=== PATIENT | female | born 1970 | race Caucasian/White ===

== ENCOUNTER 2016-10-24 04:10 | Emergency (ER) | payer BC, OTHER ==
--- NOTE | 2016-10-24 04:56 | EDM.PDOC ---
ED HPI Trauma - General Chief Complaint: Lower Extremity Injury/Pain Stated Complaint: LEFT KNEE PAIN Time Seen by Provider: 10/24/16 04:51 - History of Present Illness INITIAL COMMENTS - FREE TEXT/NARRATIVE: HISTORY AND PHYSICAL: History of present illness: Patient 46-year-old white female judgments were left knee pain she states she had this for approximately one month she denies trauma denies history of gout denies fever chills or other concern Review of systems: As per history of present illness and below otherwise all systems reviewed and negative. Past medical history: As per history of present illness and as reviewed below otherwise noncontributory. Surgical history: As per history of present illness and as reviewed below otherwise noncontributory. Social history: No reported history of drug or alcohol abuse. Family history: As per history of present illness and as reviewed below otherwise noncontributory. Physical exam: HEENT: Atraumatic, normocephalic, pupils reactive, negative for conjunctival pallor or scleral icterus, mucous membranes moist, throat clear, neck supple, nontender, trachea midline. Lungs: Clear to auscultation, breath sounds equal bilaterally, chest nontender. Heart: S1S2, regular, negative for clicks, rubs, or JVD. Abdomen: Soft, nondistended, nontender. Negative for masses or hepatosplenomegaly. Negative for costovertebral tenderness. Pelvis: Stable nontender. Genitourinary: Deferred. Rectal: Deferred. Extremities: Atraumatic, negative for cords or calf pain. Neurovascular unremarkable. Left knee No point tenderness crepitation joint grossly stable Neuro: Awake, alert, oriented. Cranial nerves II through XII unremarkable. Cerebellum unremarkable. Motor and sensory unremarkable throughout. Exam nonfocal. Diagnostics: X-ray left knee CBC uric acid Therapeutics: Paco wrap crutches Impression: #1 chronic left knee pain Definitive disposition and diagnosis as appropriate pending reevaluation and review of above. Allergies/ADRs: Allergies morphine Allergy (Verified 10/24/16 04:14) Itching Home Medications: Ambulatory Orders . [No Known Home Meds] 10/24/16 [Confirmed 10/24/16] Past Medical History HEENT History: Reports: Other (see below) Other HEENT History: frequent headaches Cardiovascular History: Reports: None Respiratory History: Reports: None Gastrointestinal History: Reports: None Genitourinary History: Reports: None Other OB/BYN History: mass removed form RLQ of abd Neurological History: Reports: Headaches, chronic Psychiatric History: Reports: None Endocrine/Metabolic History: Reports: None Hematologic History: Reports: None Immunologic History: Reports: None Oncologic (Cancer) History: Reports: None Dermatologic History: Reports: None - Infectious Disease History Infectious Disease History: Reports: None - Past Surgical History Head Surgeries/Procedures: Reports: None HEENT Surgical History: Reports: None Cardiovascular Surgical History: Reports: None Female Surgical History: Reports: Tubal ligation Endocrine Surgical History: Reports: None Musculoskeletal Surgical History: Reports: Other (see below) Other Musculoskeletal Surgeries/Procedures:: right knee 4 or 5 years ago Social & Family History - Tobacco Use Smoking Status *Q: Never Smoker Second Hand Smoke Exposure: No - Caffeine Use Caffeine Use: Reports: Soda - Alcohol Use Days Per Week of Alcohol Use: 0 - Recreational Drug Use Recreational Drug Use: No Review of Systems - Review of Systems Review Of Systems: ROS reveals no pertinent complaints other than HPI. Trauma Exam - Physical Exam Exam: See Below (See dictation) Course - Vital Signs Last Recorded V/S: Last Vital Signs Temp 36.8 C 10/24/16 04:15 Pulse 85 10/24/16 04:15 Resp 17 10/24/16 04:15 BP 137/87 10/24/16 04:15 Pulse Ox 98 10/24/16 04:15 - Orders/Labs/Meds Orders: Active Orders 24 hr Category Date Time Status Knee 3V Lt [CR] Stat Exams 10/24/16 04:21 Ordered URIC ACID [CHEM] Stat Lab 10/24/16 04:32 Received Labs: Laboratory Tests 10/24/16 Range/Units 04:32 WBC 5.09 (4.0-11.0) K/uL RBC 4.88 (4.30-5.90) M/uL Hgb 10.8 L (12.0-16.0) g/dL Hct 36.4 (36.0-46.0) % MCV 74.6 L (80.0-98.0) fL MCH 22.1 L (27.0-32.0) pg MCHC 29.7 L (31.0-37.0) g/dL RDW Std Deviation 45.8 (28.0-62.0) fl RDW Coeff of Junaid 17 H (11.0-15.0) % Plt Count 391 (150-400) K/uL MPV 9.00 (7.40-12.00) fL Neut % (Auto) 61.4 (48.0-80.0) % Lymph % (Auto) 28.3 (16.0-40.0) % [place] % (Auto) 7.3 (0.0-15.0) % Eos % (Auto) 2.6 (0.0-7.0) % Baso % (Auto) 0.4 (0.0-1.5) % Neut # (Auto) 3.1 (1.4-5.7) K/uL Lymph # (Auto) 1.4 (0.6-2.4) K/uL [place] # (Auto) 0.4 (0.0-0.8) K/uL Eos # (Auto) 0.1 (0.0-0.7) K/uL Baso # (Auto) 0.0 (0.0-0.1) K/uL Nucleated RBC % 0.0 /100WBC Nucleated RBCs # 0 K/uL Departure - Departure Time of Disposition: 04:54 Disposition: Home, Self-Care 01 Condition: good Clinical Impression: Knee pain, chronic Forms: ED Department Discharge Additional Instructions: The following information is given to patients seen in the emergency department who are being discharged to home. This information is to outline your options for follow-up care. We provide all patients seen in our emergency department with a follow-up referral. The need for follow-up, as well as the timing and circumstances, are variable depending upon the specifics of your emergency department visit. If you don't have a primary care physician on staff, we will provide you with a referral. We always advise you to contact your personal physician following an emergency department visit to inform them of the circumstance of the visit and for follow-up with them and/or the need for any referrals to a consulting specialist. The emergency department will also refer you to a specialist when appropriate. This referral assures that you have the opportunity for followup care with a specialist. All of these measure are taken in an effort to provide you with optimal care, which includes your followup. Under all circumstances we always encourage you to contact your private physician who remains a resource for coordinating your care. When calling for followup care, please make the office aware that this follow-up is from your recent emergency room visit. If for any reason you are refused follow-up, please contact the [facility] emergency department at and asked to speak to the emergency department charge nurse. [facility] [address], [address] [place] [address] Motrin Tylenol as directed Paco wrap crutches as directed call the schedule routine appointment with orthopedic surgery both return as needed as discussed - My Orders Last 24 Hours: My Active Orders 10/24/16 04:21 Knee 3V Lt [CR] Stat 10/24/16 04:32 URIC ACID [CHEM] Stat - Assessment/Plan Last 24 Hours: My Active Orders 10/24/16 04:21 Knee 3V Lt [CR] Stat 10/24/16 04:32 URIC ACID [CHEM] Stat
[2016-10-24 05:36] VITALS: BP 129/85
--- NOTE | 2016-10-24 11:45 | CR ---
EXAM DATE: 10/24/16 PATIENT'S AGE: 46 Patient: ROSAURA GONZALEZ Facility: [place], [place] Site . Site : 1970 Study: XRay Knee Left [id number]/4/2017 4:53:41 AM Ordering Physician: Doctor Mann Final Report: Indication: Pain, recent injury Technique: Three views left knee Comparison: None Findings: Bones: Alignment is normal. No fractures. There is a small intra-articular body projecting over the mid knee joint on the frontal view. Joint spaces: Unremarkable. Soft tissues: Unremarkable. Impression: No acute abnormality. Small intra-articular body projecting over the mid knee joint on the frontal view. Dictated by Karena Cagle MD @ Oct 24 2016 4:58AM (Electronic Signature) Report Signed by Proxy and Original Signed Document filed in the Medical Record. [facility]ITAL[facility]ojas
== END 2016-10-24 05:31 | disposition home or self-care (01) ==
LOC: MW.ED 04:10
DX: M25.562 Pain in left knee (principal); G89.29 Other chronic pain; Z88.5 Allergy status to narcotic agent; Z98.51 Tubal ligation status; Z98.890 Other specified postprocedural states
CPT/HCPCS: 36415; 73562-26-LT; 73562-LT; 84550; 85025; 99282; 99284

== ENCOUNTER 2017-03-29 22:53 | Emergency (ER) | payer OTHER ==
--- NOTE | 2017-03-29 23:10 | EDM.PDOC ---
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 She presents with paresthesia of her tongue upper extremities bilaterally inferior extremities she denies chest pain she states is paresthesias intermittent there' s no associated weakness been no incontinence or retention bowel or bladder no back pain no chest pain no palpitations she denies drug or alcohol abuse Review of systems: As per history of present illness and below otherwise all systems reviewed and negative. Past medical history: As per history of present illness and as reviewed below otherwise noncontributory. Surgical history: As per history of present illness and as reviewed below otherwise noncontributory. Social history: No reported history of drug or alcohol abuse. Family history: As per history of present illness and as reviewed below otherwise noncontributory. Physical exam: HEENT: Atraumatic, normocephalic, pupils reactive, negative for conjunctival pallor or scleral icterus, mucous membranes moist, throat clear, neck supple, nontender, trachea midline. Lungs: Clear to auscultation, breath sounds equal bilaterally, chest nontender. Heart: S1S2, regular, negative for clicks, rubs, or JVD. Abdomen: Soft, nondistended, nontender. Negative for masses or hepatosplenomegaly. Negative for costovertebral tenderness. Pelvis: Stable nontender. Genitourinary: Deferred. Rectal: Deferred. Extremities: Atraumatic, negative for cords or calf pain. Neurovascular unremarkable. Neuro: Awake, alert, oriented. Cranial nerves II through XII unremarkable. Cerebellum unremarkable. Motor and sensory unremarkable throughout. Exam nonfocal. Diagnostics: CBC CMP PT/INR troponin chest x-ray EKG CT brain Therapeutics: None Impression: #1 paresthesia #2 history of pain syndrome Definitive disposition and diagnosis as appropriate pending reevaluation and review of above. - Related Data Allergies Allergy/AdvReac Type Severity Reaction Status Date / Time morphine Allergy Itching Verified 03/29/17 23:08 Home Meds: Home Meds Gabapentin [Neurontin] 600 mg PO TID 03/29/17 [History] Past Medical History HEENT History: Reports: Other (See Below) Other HEENT History: frequent headaches Cardiovascular History: Reports: None Respiratory History: Reports: None Gastrointestinal History: Reports: None Genitourinary History: Reports: None Other OB/BYN History: mass removed form RLQ of abd Neurological History: Reports: Headaches, Chronic Psychiatric History: Reports: None Endocrine/Metabolic History: Reports: None Hematologic History: Reports: None Immunologic History: Reports: None Oncologic (Cancer) History: Reports: None Dermatologic History: Reports: None - Infectious Disease History Infectious Disease History: Reports: None - Past Surgical History Female Surgical History: Reports: Tubal Ligation Musculoskeletal Surgical History: Reports: Other (See Below) Social & Family History - Tobacco Use Smoking Status *Q: Never Smoker Second Hand Smoke Exposure: No - Caffeine Use Caffeine Use: Reports: Soda - Alcohol Use Days Per Week of Alcohol Use: 0 - Recreational Drug Use Recreational Drug Use: No ED ROS GENERAL - Review of Systems Review Of Systems: ROS reveals no pertinent complaints other than HPI. ED EXAM, GENERAL - Physical Exam Exam: See Below (See dictation) Course - Vital Signs Last Recorded V/S: Last Vital Signs Temp 36.6 C 03/29/17 22:53 Pulse 96 03/29/17 22:53 Resp 18 03/29/17 22:53 BP 154/104 H 03/29/17 22:53 Pulse Ox 99 03/29/17 22:53 - Orders/Labs/Meds Orders: Active Orders 24 hr Category Date Time Status EKG Documentation Completion [RC] STAT Care 03/29/17 23:10 Active Head wo Cont [CT] Stat Exams 03/29/17 23:11 Taken Labs: Laboratory Tests 03/29/17 03/29/17 03/29/17 Range/Units 23:18 23:18 23:18 WBC 5.47 (4.0-11.0) K/uL RBC 4.78 (4.30-5.90) M/uL Hgb 12.6 (12.0-16.0) g/dL Hct 40.0 (36.0-46.0) % MCV 83.7 (80.0-98.0) fL MCH 26.4 L (27.0-32.0) pg MCHC 31.5 (31.0-37.0) g/dL RDW Std Deviation 63.0 H (28.0-62.0) fl RDW Coeff of Junaid 21 H (11.0-15.0) % Plt Count 384 (150-400) K/uL MPV 9.00 (7.40-12.00) fL Neut % (Auto) 66.0 (48.0-80.0) % Lymph % (Auto) 23.2 (16.0-40.0) % [place] % (Auto) 8.0 (0.0-15.0) % Eos % (Auto) 2.4 (0.0-7.0) % Baso % (Auto) 0.4 (0.0-1.5) % Neut # (Auto) 3.6 (1.4-5.7) K/uL Lymph # (Auto) 1.3 (0.6-2.4) K/uL [place] # (Auto) 0.4 (0.0-0.8) K/uL Eos # (Auto) 0.1 (0.0-0.7) K/uL Baso # (Auto) 0.0 (0.0-0.1) K/uL Nucleated RBC % 0.0 /100WBC Nucleated RBCs # 0 K/uL INR (0.86-1.11) Sodium 139 (136-146) mmol/L Potassium 3.9 (3.5-5.1) mmol/L Chloride 106 (98-110) mmol/L Carbon Dioxide 24 (21-31) mmol/L BUN 12 (6.0-23.0) mg/dL Creatinine 0.8 (0.6-1.5) mg/dL Est Cr Clr Drug Dosing 91.83 mL/min Estimated GFR (MDRD) > 60.0 ml/min Glucose 84 (60-110) mg/dL Calcium 10.0 (8.8-10.8) mg/dL Total Bilirubin 0.3 (0.1-1.5) mg/dL AST 14 (5-40) IU/L ALT 12 (8-54) IU/L Alkaline Phosphatase 69 (40-150) Troponin I < 0.10 (0.0-0.29) NG/ML Total Protein 8.0 (6.0-8.0) g/dL Albumin 4.1 (3.5-5.0) g/dL Globulin 3.9 H (2.0-3.5) g/dL Albumin/Globulin Ratio 1.1 L (1.3-2.8) 03/29/17 Range/Units 23:18 WBC (4.0-11.0) K/uL RBC (4.30-5.90) M/uL Hgb (12.0-16.0) g/dL Hct (36.0-46.0) % MCV (80.0-98.0) fL MCH (27.0-32.0) pg MCHC (31.0-37.0) g/dL RDW Std Deviation (28.0-62.0) fl RDW Coeff of Junaid (11.0-15.0) % Plt Count (150-400) K/uL MPV (7.40-12.00) fL Neut % (Auto) (48.0-80.0) % Lymph % (Auto) (16.0-40.0) % [place] % (Auto) (0.0-15.0) % Eos % (Auto) (0.0-7.0) % Baso % (Auto) (0.0-1.5) % Neut # (Auto) (1.4-5.7) K/uL Lymph # (Auto) (0.6-2.4) K/uL [place] # (Auto) (0.0-0.8) K/uL Eos # (Auto) (0.0-0.7) K/uL Baso # (Auto) (0.0-0.1) K/uL Nucleated RBC % /100WBC Nucleated RBCs # K/uL INR 1.05 (0.86-1.11) Sodium (136-146) mmol/L Potassium (3.5-5.1) mmol/L Chloride (98-110) mmol/L Carbon Dioxide (21-31) mmol/L BUN (6.0-23.0) mg/dL Creatinine (0.6-1.5) mg/dL Est Cr Clr Drug Dosing mL/min Estimated GFR (MDRD) ml/min Glucose (60-110) mg/dL Calcium (8.8-10.8) mg/dL Total Bilirubin (0.1-1.5) mg/dL AST (5-40) IU/L ALT (8-54) IU/L Alkaline Phosphatase (40-150) Troponin I (0.0-0.29) NG/ML Total Protein (6.0-8.0) g/dL Albumin (3.5-5.0) g/dL Globulin (2.0-3.5) g/dL Albumin/Globulin Ratio (1.3-2.8) Departure - Departure Time of Disposition: 00:11 Disposition: Home, Self-Care 01 Condition: Good Clinical Impression: Paresthesia - Discharge Information Referrals: PCP,None [Primary Care Provider] - Additional Instructions: The following information is given to patients seen in the emergency department who are being discharged to home. This information is to outline your options for follow-up care. We provide all patients seen in our emergency department with a follow-up referral. The need for follow-up, as well as the timing and circumstances, are variable depending upon the specifics of your emergency department visit. If you don't have a primary care physician on staff, we will provide you with a referral. We always advise you to contact your personal physician following an emergency department visit to inform them of the circumstance of the visit and for follow-up with them and/or the need for any referrals to a consulting specialist. The emergency department will also refer you to a specialist when appropriate. This referral assures that you have the opportunity for followup care with a specialist. All of these measure are taken in an effort to provide you with optimal care, which includes your followup. Under all circumstances we always encourage you to contact your private physician who remains a resource for coordinating your care. When calling for followup care, please make the office aware that this follow-up is from your recent emergency room visit. If for any reason you are refused follow-up, please contact the [facility] emergency department at and asked to speak to the emergency department charge nurse. [facility] Specialty Care - Urology [address] [place] [id number] Follow-up primary medical doctor 1-2 days return as needed as discussed call to schedule appointment with neurology above as discussed - My Orders Last 24 Hours: My Active Orders 03/29/17 23:10 EKG Documentation Completion [RC] STAT 03/29/17 23:11 Head wo Cont [CT] Stat - Assessment/Plan Last 24 Hours: My Active Orders 03/29/17 23:10 EKG Documentation Completion [RC] STAT 03/29/17 23:11 Head wo Cont [CT] Stat
[2017-03-29 23:48] LABS: CHLORIDE,CL 106 mmol/L (98-110); SODIUM,NA 139 mmol/L (136-146)
[2017-03-30 00:49] VITALS: BP 150/90
--- NOTE | 2017-03-30 10:41 | CT ---
EXAM DATE: 03/29/17 PATIENT'S AGE: 46 Patient: ROSAURA GONZALEZ Facility: [place], [place] Site . Site : 1970 Study: CT Head WO CONT [id number]/7/[id number] 11:48:11 PM Ordering Physician: Aneta Ken Final Report: INDICATION: Neurological symptoms. Numbness. TECHNIQUE: CT head without contrast. COMPARISON: None available FINDINGS: There is slight cerebellar volume loss for the patient`s age. The ventricles demonstrate normal configuration and size. There is no mass effect or midline shift. There is no loss of wilson-white differentiation. There is no evidence of an acute intracranial hemorrhage. No acute calvarial fracture is seen. The visualized paranasal sinuses and mastoid air cells are clear. The visualized orbits are within normal limits. IMPRESSION: No evidence of an acute intracranial hemorrhage, mass effect or loss of wilson- white differentiation. Dictated by John Sawyer MD @ 03/29/2017 11:57:01 PM Dictated by: John Sawyer MD @ 03/29/2017 23:59:48 (Electronic Signature) Report Signed by Proxy. [facility]
== END 2017-03-30 00:38 | disposition home or self-care (01) ==
LOC: MW.ED 22:53
DX: R20.9 Unspecified disturbances of skin sensation (principal); Z88.5 Allergy status to narcotic agent
CPT/HCPCS: 70450; 70450-26; 80053; 84484; 85025; 85610; 93005; 99283; 99284-25

== ENCOUNTER 2017-04-01 09:46 | Emergency (ER) | payer OTHER ==
--- NOTE | 2017-04-01 09:53 | EDM.PDOC ---
ED HPI GENERAL MEDICAL PROBLEM - General Chief Complaint: Neurological Problem Stated Complaint: numbness Time Seen by Provider: 04/01/17 09:50 - History of Present Illness INITIAL COMMENTS - FREE TEXT/NARRATIVE: HISTORY AND PHYSICAL: History of present illness: The patient is a 46-year-old female with a history of a right knee replacement with some neuropathy and had nerve damage" in her legs " status post that procedure was seen here in our emergency department on March 29, 3 days ago, with similar symptoms of tongue upper extremity and lower extremity numbness and tingling; the patient was seen and evaluated and had labs EKG and CT scan all of which were negative and she was referred back to her provider. According to the documentation she had been on gabapentin, which has been adjusted about a month ago but she has not been recently seen in the clinic. She called the ambulance today because she says that she was told that if the symptoms do not improve she should return. he tells me that the numbness and tingling has been consistent and she does not feel like her tongue is weak but she feels like all of her extremities are weak and she has diffuse pain in the same locations from elbows to hands and knees to feet. She does not have proximal pain or paresthesia in the upper extremities or in the thighs and has no bowel or bladder disturbances. She says she has some diffuse back pain which is nonspecific but she has not had fevers chills urinary issues abdominal pain vomiting or diarrhea. She is not having any falls and she does not have a headache. The patient says that the tongue is patchy in its tingling and numbness but she is able to eat swallow and talk. The patient denies any rashes. Patient states that she is compliant with her medications and that she was also told that her left knee is "[id number]" and that she would need to have that replaced as well and possibly a redo on the right due to all of these complications. She has no history of any recent trauma . Please note that the patient denies as she is not sexually active Review of systems: As per history of present illness and below otherwise all systems reviewed and negative. Past medical history: As per history of present illness and as reviewed below otherwise noncontributory. Surgical history: As per history of present illness and as reviewed below otherwise noncontributory. Social history: No reported history of drug or alcohol abuse. Family history: As per history of present illness and as reviewed below otherwise noncontributory. Physical exam: General: Well-developed well-nourished female who arrives via EMS and his been able to move in the bed and transfer. Vital signs were noted by me. HEENT: Atraumatic, normocephalic, pupils reactive, negative for conjunctival pallor or scleral icterus, mucous membranes moist, throat clear, neck supple, nontender, trachea midline. there are no midline step-offs tenderness or defects and no cervical adenopathy or nuchal rigidity. Lungs: Clear to auscultation, breath sounds equal bilaterally, chest nontender. Heart: S1S2, regular, negative for clicks, rubs, or JVD. Abdomen: Soft, nondistended, nontender. Negative for masses or hepatosplenomegaly. Negative for costovertebral tenderness. Pelvis: Stable nontender. Genitourinary: Deferred. Rectal: there is normal tone push and squeeze without any abnormalities or loss of perianal sensation Extremities: Atraumatic, full range of motion without defects or deficits. There is no compartment swelling in either upper or lower extremities and there is no warmth redness joint fluid joint tenderness. The legs are negative for cords or calf pain. Neurovascular unremarkable. there are palpable pulses in the dorsalis pedis bilaterally as well as throughout the upper extremities and the color in her extremities is normal. Neuro: Awake, alert, oriented. Cranial nerves II through XII unremarkable. Cerebellum unremarkable. Motor and sensory unremarkable throughout. Exam nonfocal.Patient has diffuse subtle motor weakness 4/5 throughout upper and lower extremities but has normal speech and no facial changes or cranial nerve abnormalities. She has dorsi and plantar flexion which is 45 bilaterally inclusive of the great toe. There is normal tone throughout all extremities as well without spasticity or abnormality/laterality Patient is not terribly cooperative with sensory exam but she can feel simple touch and pressure throughout but says that she subjectively feels that it is not at her normal. Back: There are no midline step-offs tenderness defects of the cervical thoracic or lumbar spine but the patient has diffuse paraspinal muscle tenderness throughout the entire spine without defects or deformities. Diagnostics: EKG CBC CMP UA UCG CT scan of the C-spine and lumbar spine Therapeutics: Toradol Norflex Nursing tells me that the patient admits that she does have a follow-up with neurology in our clinics in May. Patient does see Dr. Baron in our clinic and I will advise her to please call the clinic tomorrow for follow-up I discussed with the patient's all testing results including her CT scans which show some mild diffuse disc osteophyte complexes and mild diffuse DJD in the cervical spine as well as the moderate disc bulge at L5-S1. I told her that we would do a brief burst of steroids along with baclofen and close follow-up with her provider. We will also advise increasing her gabapentin. I've advised on reasons to return to the ED Impression: Paresthesia of all extremities with specific demarcation, history of neuropathy with likely progression of same, disc disease at L5-S1 stable Definitive disposition and diagnosis as appropriate pending reevaluation and review of above. 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 (See Below) Other OB/BYN History: mass removed form RLQ of abd Neurological History: Reports: Headaches, Chronic Psychiatric History: Reports: None Endocrine/Metabolic History: Reports: None Hematologic History: Reports: None Immunologic History: Reports: None Oncologic (Cancer) History: Reports: None Dermatologic History: Reports: None - Infectious Disease History Infectious Disease History: Reports: None - Past Surgical History Female Surgical History: Reports: Tubal Ligation Musculoskeletal Surgical History: Reports: Other (See Below) Social & Family History - Family History Family Medical History: Noncontributory - Tobacco Use Smoking Status *Q: Never Smoker Second Hand Smoke Exposure: No - Caffeine Use Caffeine Use: Reports: Soda - Alcohol Use Days Per Week of Alcohol Use: 0 - Recreational Drug Use Recreational Drug Use: No ED ROS GENERAL - Review of Systems Review Of Systems: ROS reveals no pertinent complaints other than HPI. ED EXAM, GENERAL - Physical Exam Exam: See Below (See dictation) Course - Vital Signs Last Recorded V/S: Last Vital Signs Temp 36.3 C 04/01/17 11:20 Pulse 99 04/01/17 12:20 Resp 18 04/01/17 12:20 BP 139/103 H 04/01/17 12:20 Pulse Ox 97 04/01/17 11:20 - Orders/Labs/Meds Orders: Active Orders 24 hr Category Date Time Status EKG Documentation Completion [RC] STAT Care 04/01/17 10:05 Active Cervical Spine wo Cont [CT] Stat Exams 04/01/17 10:06 Taken Lumbar Spine wo Cont [CT] Stat Exams 04/01/17 10:06 Taken UA W/MICROSCOPIC [URIN] Stat Lab 04/01/17 10:06 Uncollected Sodium Chloride 0.9% [Saline Flush] Med 04/01/17 10:07 Active 10 ml FLUSH ASDIRECTED PRN Sodium Chloride 0.9% [Saline Flush] Med 04/01/17 10:07 Active 2.5 ml FLUSH ASDIRECTED PRN Saline Lock Insert [OM.PC] Stat Oth 04/01/17 10:05 Ordered Medication Orders Sodium Chloride (Saline Flush) 10 ml FLUSH ASDIRECTED PRN PRN Reason: Keep Vein Open Last Admin: 04/01/17 10:20 Dose: 10 ml Sodium Chloride (Saline Flush) 2.5 ml FLUSH ASDIRECTED PRN PRN Reason: Keep Vein Open Last Admin: 04/01/17 10:21 Dose: 2.5 ml Labs: Laboratory Tests 04/01/17 04/01/17 04/01/17 Range/Units 10:20 10:20 10:20 WBC 11.99 H (4.0-11.0) K/uL RBC 5.18 (4.30-5.90) M/uL Hgb 13.8 (12.0-16.0) g/dL Hct 42.6 (36.0-46.0) % MCV 82.2 (80.0-98.0) fL MCH 26.6 L (27.0-32.0) pg MCHC 32.4 (31.0-37.0) g/dL RDW Std Deviation 60.4 (28.0-62.0) fl RDW Coeff of Junaid 21 H (11.0-15.0) % Plt Count 374 (150-400) K/uL MPV 8.90 (7.40-12.00) fL Neut % (Auto) 80.6 H (48.0-80.0) % Lymph % (Auto) 12.9 L (16.0-40.0) % [place] % (Auto) 5.8 (0.0-15.0) % Eos % (Auto) 0.5 (0.0-7.0) % Baso % (Auto) 0.2 (0.0-1.5) % Neut # (Auto) 9.7 H (1.4-5.7) K/uL Lymph # (Auto) 1.6 (0.6-2.4) K/uL [place] # (Auto) 0.7 (0.0-0.8) K/uL Eos # (Auto) 0.1 (0.0-0.7) K/uL Baso # (Auto) 0.0 (0.0-0.1) K/uL Nucleated RBC % 0.0 /100WBC Nucleated RBCs # 0 K/uL Sodium 135 L (136-146) mmol/L Potassium 4.2 (3.5-5.1) mmol/L Chloride 101 (98-110) mmol/L Carbon Dioxide 22 (21-31) mmol/L BUN 17 (6.0-23.0) mg/dL Creatinine 0.9 (0.6-1.5) mg/dL Est Cr Clr Drug Dosing TNP Estimated GFR (MDRD) > 60.0 ml/min Glucose 113 H (60-110) mg/dL Calcium 10.4 (8.8-10.8) mg/dL Total Bilirubin 0.3 (0.1-1.5) mg/dL AST 12 (5-40) IU/L ALT 11 (8-54) IU/L Alkaline Phosphatase 70 (40-150) Total Protein 8.2 H (6.0-8.0) g/dL Albumin 4.3 (3.5-5.0) g/dL Globulin 3.9 H (2.0-3.5) g/dL Albumin/Globulin Ratio 1.1 L (1.3-2.8) HCG, Qual NEGATIVE (NEG) Meds: Medications Generic Name Dose Route Start Last Admin Trade Name Eric PRN Reason Stop Dose Admin Sodium Chloride 10 ml 04/01/17 10:07 04/01/17 10:20 Saline Flush FLUSH 10 ml ASDIRECTED PRN Administration Keep Vein Open Sodium Chloride 2.5 ml 04/01/17 10:07 04/01/17 10:21 Saline Flush FLUSH 2.5 ml ASDIRECTED PRN Administration Keep Vein Open Discontinued Medications Generic Name Dose Route Start Last Admin Trade Name Gilsonq PRN Reason Stop Dose Admin Ketorolac Tromethamine 30 mg 04/01/17 10:07 04/01/17 10:27 Toradol IVPUSH 04/01/17 10:08 30 mg ONETIME ONE Administration Methylprednisolone Sodium Succinate 125 mg 04/01/17 13:03 Solu-Medrol IVPUSH 04/01/17 13:04 ONETIME ONE Orphenadrine Citrate 60 mg 04/01/17 10:07 04/01/17 10:31 Norflex IM 04/01/17 10:08 60 mg ONETIME ONE Administration Departure - Departure Time of Disposition: 13:05 Disposition: Home, Self-Care 01 Condition: Good Clinical Impression: Paresthesia, Neuropathy, Lumbar disc disease - Discharge Information Referrals: PCP,Unknown [Primary Care Provider] - Forms: ED Department Discharge Additional Instructions: The following information is given to patients seen in the emergency department who are being discharged to home. This information is to outline your options for follow-up care. We provide all patients seen in our emergency department with a follow-up referral. The need for follow-up, as well as the timing and circumstances, are variable depending upon the specifics of your emergency department visit. If you don't have a primary care physician on staff, we will provide you with a referral. We always advise you to contact your personal physician following an emergency department visit to inform them of the circumstance of the visit and for follow-up with them and/or the need for any referrals to a consulting specialist. The emergency department will also refer you to a specialist when appropriate. This referral assures that you have the opportunity for followup care with a specialist. All of these measure are taken in an effort to provide you with optimal care, which includes your followup. Under all circumstances we always encourage you to contact your private physician who remains a resource for coordinating your care. When calling for followup care, please make the office aware that this follow-up is from your recent emergency room visit. If for any reason you are refused follow-up, please contact the [facility] emergency department at and ask to speak to the emergency department charge nurse. [facility] Primary care- Internal Medicine and Family [address] [address] Please call and follow-up with your provider in the clinic this week in the next few days as we discussed and return to the ER as needed and as discussed. Keep your appointment with the neurologist in the future for further care and evaluation. Please use all medications as prescribed - My Orders Last 24 Hours: My Active Orders 04/01/17 10:05 EKG Documentation Completion [RC] STAT Saline Lock Insert [OM.PC] Stat 04/01/17 10:06 Cervical Spine wo Cont [CT] Stat Lumbar Spine wo Cont [CT] Stat UA W/MICROSCOPIC [URIN] Stat 04/01/17 10:07 Sodium Chloride 0.9% [Saline Flush] 10 ml FLUSH ASDIRECTED PRN Sodium Chloride 0.9% [Saline Flush] 2.5 ml FLUSH ASDIRECTED PRN - Assessment/Plan Last 24 Hours: My Active Orders 04/01/17 10:05 EKG Documentation Completion [RC] STAT Saline Lock Insert [OM.PC] Stat 04/01/17 10:06 Cervical Spine wo Cont [CT] Stat Lumbar Spine wo Cont [CT] Stat UA W/MICROSCOPIC [URIN] Stat 04/01/17 10:07 Sodium Chloride 0.9% [Saline Flush] 10 ml FLUSH ASDIRECTED PRN Sodium Chloride 0.9% [Saline Flush] 2.5 ml FLUSH ASDIRECTED PRN
[2017-04-01] MEDS ORDERED: Sodium Chloride 0.9% 10 ML Syringe FLUSH PRN (10:07)
[2017-04-01] MEDS ORDERED: Ketorolac 30 MG/ML SDV IVPUSH ONE (10:07)
[2017-04-01] MEDS ORDERED: Sodium Chloride 0.9% 2.5 ML Syringe FLUSH PRN (10:07)
[2017-04-01 10:51] LABS: CHLORIDE,CL 101 mmol/L (98-110); SODIUM,NA 135 mmol/L (136-146)
[2017-04-01] MEDS ORDERED: methylPREDNISolone Sodium Succinate 125 MG/2 ML SDV IVPUSH ONE (13:03)
[2017-04-01 13:07] VITALS: BP 136/102
[2017-04-01] MEDS ORDERED: traMADol 50 MG Tab PO ONE (13:27)
--- NOTE | 2017-04-02 16:36 | CT ---
EXAM DATE: 04/01/17 PATIENT'S AGE: 46 Patient: ROSAURA GONZALEZ Facility: [place], [place] Site . Site : 1970 Study: CT Spine Cervical [id number]/10/2017 11:45:18 AM Ordering Physician: Melva Daley Final Report: Indication Numbness and pain in the bilateral upper extremities. Technique: Noncontrast CT images were acquired through the cervical spine. Comparison: None. Findings: No acute fracture is identified. There is straightening of the cervical lordosis with mild reversal at C4-5. Vertebral body heights are preserved. Mild anterolisthesis of C2 on C3 and C3 on C4. No prevertebral soft tissue swelling. C2-3: Bilateral uncovertebral and facet arthropathy. No significant spinal canal or neural foraminal stenosis. C3-4: Mild disc bulging. Asymmetric xkrb-jsuaous-cmrm-right uncovertebral and facet arthropathy. No significant spinal canal or right neural foraminal stenosis. Moderate left neural foraminal stenosis. C4-5: Votw-pc-mmcsnpww disc height loss. Broad-based posterior disc osteophyte complex contributes to mild spinal canal stenosis. Bilateral uncovertebral and facet arthropathy. Mild right and moderate left neural foraminal stenosis. C5-6: Crjf-ig-rjrlylgt disc height loss. Broad-based posterior disc osteophyte complex contributes to crtx-mq-mkcceadf spinal canal stenosis. Bilateral uncovertebral and facet arthropathy. Mild right and pfmj-mx-zgxamveg left neural foraminal stenosis. C6-7: Mild disc height loss. Central disc protrusion associated with moderate spinal canal stenosis. Bilateral uncovertebral and facet arthropathy. Mild left without significant right neural foraminal stenosis. C7-T1: Asymmetric left facet joint arthropathy. No significant spinal canal stenosis. Mild left without significant right neural foraminal stenosis. No significant spinal canal or neural foraminal stenosis in the visualized upper thoracic spine. The right thyroid lobe is not visualized, and may have been surgically resected. Impression: 1. No acute fracture of the cervical spine. 2. Straightening of the cervical lordosis with mild reversal centered at C4-5. 3. Mild anterolisthesis of C2 on C3 and C3 on C4. 4. At C6-7, a central disc protrusion contributes to moderate spinal canal stenosis. Mild left neural foraminal stenosis. 5. At C5-6, ywib-tz-zkkblruq spinal canal stenosis. Mild right and mild-to- moderate left neural foraminal stenosis. 6. At C4-5, mild spinal canal stenosis. Mild right and jrfo-vs-sbqmthjx left neural foraminal stenosis. 7. At C3-4, moderate left neural foraminal stenosis. Please note that all CT scans at this facility use dose modulation, iterative reconstruction, and/or weight-based dosing when appropriate to reduce radiation dose to as low as reasonably achievable. Dictated by Arvin Negrete MD @ Apr 02 2017 8:49AM (Electronic Signature) Report Signed by Proxy. MTDD
--- NOTE | 2017-04-02 16:38 | CT ---
EXAM DATE: 04/01/17 PATIENT'S AGE: 46 Patient: ROSAURA GONZALEZ Facility: [place], [place] Site . Site : 1970 Study: CT Spine Lumbar [id number]/10/2017 11:45:49 AM Ordering Physician: Melva Daley Final Report: Indication: Pain and numbness knees to the feet. Technique: Noncontrast CT images were acquired through the lumbar spine. Comparison: None. Findings: No acute fracture is identified. The lumbar lordosis is preserved. No spondylolisthesis. Disc degeneration associated with moderate to severe disc height loss, vacuum disc phenomenon, and reactive endplate sclerotic changes at T12-L1 and L5-S1. T11-12: No significant spinal canal or neural foraminal stenosis. T12-L1: Moderate to severe disc height loss. No significant spinal canal or neural foraminal stenosis. L1-2: No significant spinal canal or neural foraminal stenosis. L2-3: Mild bilateral facet arthropathy. No significant spinal canal or neural foraminal stenosis. L3-4: Mild bilateral facet arthropathy. No significant spinal canal or neural foraminal stenosis. L4-5: Small circumferential disc bulge. Qqhd-za-xkemgmne bilateral facet arthropathy. No significant spinal canal or neural foraminal stenosis. L5-S1: Moderate to severe disc height loss. Endplate osteophytes. Small circumferential disc bulge. Moderate bilateral facet arthropathy. Moderate to severe bilateral neural foraminal stenosis. No significant spinal canal stenosis. Sacroiliac joint degenerative changes bilaterally. Impression: 1. No acute fracture or spondylolisthesis. 2. Disc degeneration associated with moderate to severe disc height loss, vacuum disc phenomenon, and reactive endplate sclerotic changes at T12-L1 and L5 -S1. 3. At L5-S1, moderate to severe bilateral neural foraminal stenosis and possible impingement of the exiting L5 nerve roots bilaterally. Correlation with L5 radiculopathy is recommended. 4. No other significant neural foraminal stenosis. No significant spinal canal stenosis. Please note that all CT scans at this facility use dose modulation, iterative reconstruction, and/or weight-based dosing when appropriate to reduce radiation dose to as low as reasonably achievable. Dictated by Arvin Negrete MD @ Apr 02 2017 9:00AM (Electronic Signature) Report Signed by Proxy. [facility] SYSTEMRojas
== END 2017-04-01 13:55 | disposition home or self-care (01) ==
LOC: MW.ED 09:46
DX: M51.36 Other intervertebral disc degeneration, lumbar region (principal); G62.9 Polyneuropathy, unspecified; Z96.651 Presence of right artificial knee joint; Z88.5 Allergy status to narcotic agent
CPT/HCPCS: 36415; 72125; 72131; 80053; 84703; 85025; 93005; 96372; 96374; 96375; 99285; A9270; J1885; J2360; J2930; 99283

== ENCOUNTER 2017-04-03 14:31 | Emergency (ER) | payer OTHER ==
--- NOTE | 2017-04-03 14:58 | EDM.PDOC ---
ED HPI GENERAL MEDICAL PROBLEM - General Chief Complaint: Neurological Problem Stated Complaint: NUMBNESS IN LEG AND BACK PAIN Time Seen by Provider: 04/03/17 14:58 Source of Information: Reports: Patient History Limitations: Reports: No Limitations - History of Present Illness INITIAL COMMENTS - FREE TEXT/NARRATIVE: HISTORY AND PHYSICAL: History of present illness: Patient is a 46-year-old female who presents to the emergency room today with complaints of low back pain and left foot numbness. Patient was seen in the emergency room on 04/01/17 by me in which we did a full workup including an EKG, labs, CT of the C-spine and lumbar spine. CT showed a moderate bulge disc at L5- S1. At this time I increased her gabapentin and placed her on baclofen and steroids. She reports that her symptoms are not new today but they do feel worse. Reports "I can't take the pain and wait to be seen by my doctor tomorrow ". States she has been taking her prescribed medications are not providing her with relief. Denies any urinary or fecal incontinence. Reports she had a normal bowel movement yesterday and voiding without difficulty. Denies any recent injury, trauma, falls. Denies any chest pain, shortness of breath, abdominal pain, n/v/d, fever or chills. I was able to stand by assist and walk with the patient to the bed. Patient is fully ambulatory without difficulty and a normal gait. Patient was able to adjust herself in the bed and twist from side to side without increased discomfort or difficulty. Patient does have a appointment with Dr. Baron tomorrow morning at 8 AM. I discussed this case with Dr. Baron and he is aware of her use of the emergency room. She also has a follow-up appointment with neurology on May. Review of systems: As per history of present illness and below otherwise all systems reviewed and negative. Past medical history: As per history of present illness and as reviewed below otherwise noncontributory. Surgical history: As per history of present illness and as reviewed below otherwise noncontributory. Social history: No reported history of drug or alcohol abuse. Family history: As per history of present illness and as reviewed below otherwise noncontributory. Physical exam: General: Nontoxic appearing 46 year old female. Able to speak in full sentences. Alert and oriented. HEENT: Atraumatic, normocephalic, pupils reactive, negative for conjunctival pallor or scleral icterus, mucous membranes moist, throat clear, neck supple, nontender, trachea midline. Lungs: Clear to auscultation, breath sounds equal bilaterally, chest nontender. Heart: S1S2, regular, negative for clicks, rubs, or JVD. Abdomen: Soft, obese, nondistended, nontender. Negative for masses. Negative for costovertebral tenderness. Pelvis: Stable nontender. Genitourinary: Deferred. Rectal: This was done with a special needs bus driver. She has good rectal tone. Extremities: Atraumatic, able to move all extremities per self. Has good flexion ,extension, and rotation of the trunk. Negative for cords or calf pain. Neurovascular unremarkable. Neuro: Awake, alert, oriented. Cranial nerves II through XII unremarkable. Cerebellum unremarkable. Motor and sensory unremarkable throughout. Exam nonfocal. As this patient was just recently seen we discussed that diagnostics are not necessary at this time as she has no new symptoms and had a full workup on . We'll manage the patient's pain with a shot of Dilaudid here and give her a few tablets of Percocet for home. She should continue to take her home medications and see in the morning as already arranged. Patient voices understanding and is agreeable to care. Diagnostics: Please see note, a full workup was done on 04/01/17 Therapeutics: IM Dilaudid Impression: Low back pain, pain management Definitive disposition and diagnosis as appropriate pending reevaluation and review of above. - Related Data Allergies Allergy/AdvReac Type Severity Reaction Status Date / Time morphine Allergy Itching Verified 04/01/17 09:47 Home Meds: Home Meds Gabapentin [Neurontin] 600 mg PO TID 03/29/17 [History] Amitriptyline [Elavil] 04/03/17 [History] Carisoprodol [Soma] 04/03/17 [History] Prednisone [IJD: predniSONE] 04/03/17 [History] Past Medical History HEENT History: Reports: Other (See Below) Other HEENT History: frequent headaches Cardiovascular History: Reports: None Respiratory History: Reports: None Gastrointestinal History: Reports: None Genitourinary History: Reports: None [employer]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 (See Below) Other OB/BYN History: mass removed form RLQ of abd Neurological History: Reports: Headaches, Chronic Psychiatric History: Reports: None Endocrine/Metabolic History: Reports: None Hematologic History: Reports: None Immunologic History: Reports: None Oncologic (Cancer) History: Reports: None Dermatologic History: Reports: None - Infectious Disease History Infectious Disease History: Reports: None - Past Surgical History Female Surgical History: Reports: Tubal Ligation Musculoskeletal Surgical History: Reports: Other (See Below) Social & Family History - Family History Family Medical History: Noncontributory - Tobacco Use Smoking Status *Q: Never Smoker Second Hand Smoke Exposure: No - Caffeine Use Caffeine Use: Reports: Soda - Alcohol Use Days Per Week of Alcohol Use: 0 - Recreational Drug Use Recreational Drug Use: No ED ROS GENERAL - Review of Systems Review Of Systems: ROS reveals no pertinent complaints other than HPI. ED EXAM, GENERAL - Physical Exam Exam: See Below (See dictation) Course - Orders/Labs/Meds Orders: Active Orders 24 hr Category Date Time Status HYDROmorphone [Dilaudid] Med 04/03/17 15:04 Once 1 mg IM ONETIME ONE Departure - Departure Time of Disposition: 15:15 Disposition: Home, Self-Care 01 Condition: Good Clinical Impression: Pain management Back pain Qualifiers: Back pain location: low back pain Chronicity: unspecified Back pain laterality : midline Sciatica presence: without sciatica Qualified Code(s): M54.5 - Low back pain - Discharge Information Referrals: Jim Baron MD [Primary Care Provider] - Forms: ED Department Discharge Additional Instructions: The following information is given to patients seen in the emergency department who are being discharged to home. This information is to outline your options for follow-up care. We provide all patients seen in our emergency department with a follow-up referral. The need for follow-up, as well as the timing and circumstances, are variable depending upon the specifics of your emergency department visit. If you don't have a primary care physician on staff, we will provide you with a referral. We always advise you to contact your personal physician following an emergency department visit to inform them of the circumstance of the visit and for follow-up with them and/or the need for any referrals to a consulting specialist. The emergency department will also refer you to a specialist when appropriate. This referral assures that you have the opportunity for followup care with a specialist. All of these measure are taken in an effort to provide you with optimal care, which includes your followup. Under all circumstances we always encourage you to contact your private physician who remains a resource for coordinating your care. When calling for followup care, please make the office aware that this follow-up is from your recent emergency room visit. If for any reason you are refused follow-up, please contact the [facility] emergency department at and ask to speak to the emergency department charge nurse. [facility]- Internal Medicine and Family [address] [address] 1. He received an injection of Dilaudid today. Please do not drive as discussed. You have been given a limited prescription of Percocet please take this for breakthrough pain. 2. Keep your appointment with Dr. Baron and see him tomorrow for further care 3. Return to the ED as needed as discussed - My Orders Last 24 Hours: My Active Orders 04/03/17 15:04 HYDROmorphone [Dilaudid] 1 mg IM ONETIME ONE - Assessment/Plan Last 24 Hours: My Active Orders 04/03/17 15:04 HYDROmorphone [Dilaudid] 1 mg IM ONETIME ONE
[2017-04-03] MEDS ORDERED: HYDROmorphone 1 MG/ML Syringe IM ONE (15:04)
[2017-04-03 15:08] VITALS: BP 149/92
== END 2017-04-03 15:35 | disposition home or self-care (01) ==
LOC: MW.ED 14:31
DX: M54.5 Low back pain (principal); Z98.51 Tubal ligation status
CPT/HCPCS: 96372; 99283; J1170

== ENCOUNTER 2017-04-05 08:45 | Emergency (ER) | payer OTHER ==
[2017-04-05] MEDS ORDERED: Sodium Chloride 0.9% 1,000 ML IV ONE (09:15)
[2017-04-05] MEDS ORDERED: Sodium Chloride 0.9% 10 ML Syringe FLUSH PRN (09:15)
[2017-04-05] MEDS ORDERED: Sodium Chloride 0.9% 2.5 ML Syringe FLUSH PRN (09:15)
[2017-04-05] MEDS ORDERED: Ketorolac 30 MG/ML SDV IVPUSH ONE (09:15)
--- NOTE | 2017-04-05 09:29 | EDM.PDOC ---
ED HPI GENERAL MEDICAL PROBLEM - General Chief Complaint: Neuro Symptoms/Deficits Stated Complaint: NUMBNESS Time Seen by Provider: 04/05/17 08:48 - History of Present Illness INITIAL COMMENTS - FREE TEXT/NARRATIVE: HISTORY AND PHYSICAL: History of present illness: The patient is a 46-year-old female who presents via EMS with persistent numbness from knees to feet bilaterally and from elbows to hands bilaterally associated with diffuse pain in the extremities and now pain on her chest and entire back. The patient has been seen here March 29 with paresthesias and was evaluated with labs and a CAT scan of her head which were negative and the patient returned with it on both April 01 and April 03 with similar symptoms. The patient says that her symptoms initially started on March 28 and they started all at once with numbness/tingling and pain from elbows to hands bilaterally and from knees to feet bilaterally and when the symptoms started and throughout the first several days of this symptomatology she did not have any neck or back pain. She had no trauma and no history of any neck or back problems. When I saw her on April 01 she underwent labs and a CT scan of her cervical spine and lumbar spine as the patient did not have weakness, only pain in the tingling/numbness sensation and had no bowel or bladder disturbances. Those CT scans have been reviewed by me and indicate diffuse disc disease in the cervical spine as well as an L5-S1 disc bulge. The patient was started on prednisone and her gabapentin was increased and muscle relaxers were added at that time. The patient re-presented on April 03 with complaints of persistent pain and had an appointment with her primary the next day and wanted just to get through the pain until she could see Dr. Baron. The patient saw her provider yesterday who added Lyrica and ordered MRIs to be performed next week. The patient says that she has now much more diffuse pain and it is not longer localized to the areas described above, elbow to hands and knees to feet , and is now more diffuse on her anterior chest wall trunk and back diffusely. Just touching the areas causes diffuse pain. The patient has not had no fever chills coughing vomiting diarrhea and still has no bowel or bladder disturbances. Review of systems: As per history of present illness and below otherwise all systems reviewed and negative. Past medical history: As per history of present illness and as reviewed below otherwise noncontributory. Surgical history: As per history of present illness and as reviewed below otherwise noncontributory. Social history: No reported history of drug or alcohol abuse. Family history: As per history of present illness and as reviewed below otherwise noncontributory. Physical exam: Gen.: Well-developed well-nourished female who is nontoxic and speaking clearly and easily in the ED tingling or secretions and airway. Vital signs were noted by me. HEENT: Atraumatic, normocephalic, pupils reactive, negative for conjunctival pallor or scleral icterus, mucous membranes moist, throat clear, neck supple, nontender, trachea midline. Lungs: Clear to auscultation, breath sounds equal bilaterally, chest nontender. Heart: S1S2, regular, negative for clicks, rubs, or JVD. Abdomen: Soft, nondistended, nontender. Negative for masses or hepatosplenomegaly. Negative for costovertebral tenderness. Pelvis: Stable nontender. Genitourinary: Deferred. Rectal: Deferred. Extremities: Atraumatic, negative for cords or calf pain. Neurovascular unremarkable. Neuro: Awake, alert, oriented. The patient has difficulty closing her right eyelid completely and there is a slight downward turn of her face and this does involve for head on the right as well. Patient's speech is intact. Patient's strength throughout all extremities is a 3.5-4/5 and reflexes are diminished throughout. All symptoms are equal on my evaluation upper extremities and lower extremities. Exam nonfocal. Back: There is no CVA tenderness there are no midline step-offs in his defects of the thoracic or lumbar spine but there is diffuse tenderness wherever I touch on her back as well as on her chest wall areas. There is no bony defects or deficits. Diagnostics: CBC CMP INR Therapeutics: IV IV fluids Toradol 0911: Dr. Tobar our neurologist was immediately consult on the patient's arrival to the ED as the patient's symptoms seem to be evolving and now involve or diffuse whole-body pain and some facial nerve changes.. She is currently in the ED at [phone]. [phone]: Dr. Tobar feels that this is an atypical presentation of the MRA. She feels that the patient should be transferred for lumbar puncture and treatment that we do not have available here. She feels the patient can go by ambulance. I will contact [facility] for this transfer. 1008: Case was discussed with Dr. Morgan in the ER at [facility] in [place] who accepts the patient for transfer. A bone screw will be notified to bring her there for definitive treatment. Patient is aware of this transfer and is comfortable. CT scans from her prior ER visits, CT scan of the head C-spine and lumbar spine will be pushed to [facility] for their review as well. Impression: Persistent Extremity paresthesias and pain, atypical presentation of Guillain spring; cervical and lumbar disc disease Definitive disposition and diagnosis as appropriate pending reevaluation and review of above. Generalized Pain Score (Numeric/FACES): 10 - Related Data Allergies Allergy/AdvReac Type Severity Reaction Status Date / Time morphine Allergy Itching Verified 04/05/17 09:02 Home Meds: Home Meds Gabapentin [Neurontin] 600 mg PO TID 03/29/17 [History] Amitriptyline [Elavil] 25 mg PO BEDTIME PRN 04/03/17 [History] Prednisone [IJD: predniSONE] 20 mg PO DAILY 04/03/17 [History] Naproxen Sodium [Aleve] 220 mg PO DAILY PRN 04/05/17 [History] Pregabalin [Lyrica] 75 mg PO BID 04/05/17 [History] Past Medical History HEENT History: Reports: Other (See Below) Other HEENT History: frequent headaches Cardiovascular History: Reports: None Respiratory History: Reports: None Gastrointestinal History: Reports: None Genitourinary History: Reports: None [employer]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 (See Below) Other OB/BYN History: mass removed form RLQ of abd Neurological History: Reports: Headaches, Chronic Psychiatric History: Reports: None Endocrine/Metabolic History: Reports: None Hematologic History: Reports: None Immunologic History: Reports: None Oncologic (Cancer) History: Reports: None Dermatologic History: Reports: None - Infectious Disease History Infectious Disease History: Reports: Chicken Pox - Past Surgical History Head Surgeries/Procedures: Reports: None Female Surgical History: Reports: Tubal Ligation Musculoskeletal Surgical History: Reports: Other (See Below) Other Musculoskeletal Surgeries/Procedures:: numbness, parasthesias of the bilat upper and lower extremities, clumsiness and falls Social & Family History - Family History Family Medical History: Noncontributory - Tobacco Use Smoking Status *Q: Never Smoker Second Hand Smoke Exposure: No - Caffeine Use Caffeine Use: Reports: Soda - Alcohol Use Days Per Week of Alcohol Use: 0 - Recreational Drug Use Recreational Drug Use: No ED ROS GENERAL - Review of Systems Review Of Systems: ROS reveals no pertinent complaints other than HPI. ED EXAM, GENERAL - Physical Exam Exam: See Below (See dictation) Course - Vital Signs Last Recorded V/S: Last Vital Signs Temp 36.2 C 04/05/17 08:45 Pulse 104 H 04/05/17 10:00 Resp 18 04/05/17 10:00 BP 176/104 H 04/05/17 10:00 Pulse Ox 95 04/05/17 10:00 - Orders/Labs/Meds Orders: Active Orders 24 hr Category Date Time Status Cardiac Monitoring [RC] . DIRECTED Care 04/05/17 09:14 Active EKG Documentation Completion [RC] STAT Care 04/05/17 09:14 Active Notify Provider Consults [RC] ASDIRECTED Care 04/05/17 09:15 Active Oxygen Therapy, ED [RC] ASDIRECTED Care 04/05/17 09:14 Active Pulse Oximetry [RC] ASDIRECTED Care 04/05/17 09:14 Active Consult to Physician [CONS] Stat Cons 04/05/17 09:15 Active INR,PT,PROTHROMBIN TIME [COAG] Stat Lab 04/05/17 09:25 Received Sodium Chloride 0.9% [Normal Saline] 1,000 ml Med 04/05/17 09:15 Active IV STAT Sodium Chloride 0.9% [Saline Flush] Med 04/05/17 09:15 Active 10 ml FLUSH ASDIRECTED PRN Sodium Chloride 0.9% [Saline Flush] Med 04/05/17 09:15 Active 2.5 ml FLUSH ASDIRECTED PRN Saline Lock Insert [OM.PC] Stat Oth 04/05/17 09:14 Ordered Medication Orders Sodium Chloride (Normal Saline) 1,000 mls @ 999 mls/hr IV STAT ONE Stop: 04/05/17 10:15 Last Admin: 04/05/17 09:58 Dose: 999 mls/hr Sodium Chloride (Saline Flush) 10 ml FLUSH ASDIRECTED PRN PRN Reason: Keep Vein Open Sodium Chloride (Saline Flush) 2.5 ml FLUSH ASDIRECTED PRN PRN Reason: Keep Vein Open Labs: Laboratory Tests 04/05/17 04/05/17 Range/Units 09:25 09:25 WBC 8.21 (4.0-11.0) K/uL RBC 5.11 (4.30-5.90) M/uL Hgb 13.8 (12.0-16.0) g/dL Hct 42.6 (36.0-46.0) % MCV 83.4 (80.0-98.0) fL MCH 27.0 (27.0-32.0) pg MCHC 32.4 (31.0-37.0) g/dL RDW Std Deviation 62.5 H (28.0-62.0) fl RDW Coeff of Junaid 21 H (11.0-15.0) % Plt Count 418 H (150-400) K/uL MPV 9.20 (7.40-12.00) fL Neut % (Auto) 70.4 (48.0-80.0) % Lymph % (Auto) 19.9 (16.0-40.0) % Lamar % (Auto) 8.6 (0.0-15.0) % Eos % (Auto) 0.5 (0.0-7.0) % Baso % (Auto) 0.6 (0.0-1.5) % Neut # (Auto) 5.8 H (1.4-5.7) K/uL Lymph # (Auto) 1.6 (0.6-2.4) K/uL Lamar # (Auto) 0.7 (0.0-0.8) K/uL Eos # (Auto) 0.0 (0.0-0.7) K/uL Baso # (Auto) 0.1 (0.0-0.1) K/uL Nucleated RBC % 0.0 /100WBC Nucleated RBCs # 0 K/uL Sodium 137 (136-146) mmol/L Potassium 4.0 (3.5-5.1) mmol/L Chloride 100 (98-110) mmol/L Carbon Dioxide 26 (21-31) mmol/L BUN 18 (6.0-23.0) mg/dL Creatinine 0.8 (0.6-1.5) mg/dL Est Cr Clr Drug Dosing TNP Estimated GFR (MDRD) > 60.0 ml/min Glucose 89 (60-110) mg/dL Calcium 10.3 (8.8-10.8) mg/dL Total Bilirubin 0.6 (0.1-1.5) mg/dL AST 22 (5-40) IU/L ALT 33 (8-54) IU/L Alkaline Phosphatase 80 (40-150) Total Protein 8.4 H (6.0-8.0) g/dL Albumin 4.4 (3.5-5.0) g/dL Globulin 4.0 H (2.0-3.5) g/dL Albumin/Globulin Ratio 1.1 L (1.3-2.8) Meds: Medications Generic Name Dose Route Start Last Admin Trade Name Freq PRN Reason Stop Dose Admin Sodium Chloride 1,000 mls @ 999 mls/hr 04/05/17 09:15 04/05/17 09:58 Normal Saline IV 04/05/17 10:15 999 mls/hr STAT ONE Administration Sodium Chloride 10 ml 04/05/17 09:15 Saline Flush FLUSH ASDIRECTED PRN Keep Vein Open Sodium Chloride 2.5 ml 04/05/17 09:15 Saline Flush FLUSH ASDIRECTED PRN Keep Vein Open Discontinued Medications Generic Name Dose Route Start Last Admin Trade Name Freq PRN Reason Stop Dose Admin Hydromorphone HCl 1 mg 04/05/17 09:59 Dilaudid IVPUSH 04/05/17 10:00 ONETIME ONE Ketorolac Tromethamine 30 mg 04/05/17 09:15 04/05/17 09:54 Toradol IVPUSH 04/05/17 09:16 30 mg ONETIME ONE Administration Departure - Departure Time of Disposition: 10:11 Disposition: DC/Tfer to Acute Hospital 02 Condition: Fair Clinical Impression: Paresthesias, Guillain Spring syndrome Extremity pain Qualifiers: Extremity pain location: unspecified extremity Qualified Code(s): M79.609 - Pain in unspecified limb - Discharge Information Referrals: PCP,None [Primary Care Provider] - Forms: ED Department Discharge - My Orders Last 24 Hours: My Active Orders 04/05/17 09:14 Cardiac Monitoring [RC] . DIRECTED EKG Documentation Completion [RC] STAT Oxygen Therapy, ED [RC] ASDIRECTED Pulse Oximetry [RC] ASDIRECTED Saline Lock Insert [OM.PC] Stat 04/05/17 09:15 Notify Provider Consults [RC] ASDIRECTED Consult to Physician [CONS] Stat Sodium Chloride 0.9% [Normal Saline] 1,000 ml IV STAT Sodium Chloride 0.9% [Saline Flush] 10 ml FLUSH ASDIRECTED PRN Sodium Chloride 0.9% [Saline Flush] 2.5 ml FLUSH ASDIRECTED PRN 04/05/17 09:25 INR,PT,PROTHROMBIN TIME [COAG] Stat - Assessment/Plan Last 24 Hours: My Active Orders 04/05/17 09:14 Cardiac Monitoring [RC] . DIRECTED EKG Documentation Completion [RC] STAT Oxygen Therapy, ED [RC] ASDIRECTED Pulse Oximetry [RC] ASDIRECTED Saline Lock Insert [OM.PC] Stat 04/05/17 09:15 Notify Provider Consults [RC] ASDIRECTED Consult to Physician [CONS] Stat Sodium Chloride 0.9% [Normal Saline] 1,000 ml IV STAT Sodium Chloride 0.9% [Saline Flush] 10 ml FLUSH ASDIRECTED PRN Sodium Chloride 0.9% [Saline Flush] 2.5 ml FLUSH ASDIRECTED PRN 04/05/17 09:25 INR,PT,PROTHROMBIN TIME [COAG] Stat
[2017-04-05] MEDS ORDERED: HYDROmorphone 2 MG/ML Syringe IVPUSH ONE (09:59)
[2017-04-05 10:02] LABS: CHLORIDE,CL 100 mmol/L (98-110); SODIUM,NA 137 mmol/L (136-146)
[2017-04-05 10:53] VITALS: BP 168/90
--- NOTE | 2017-04-05 10:57 | EDM.PDOC ---
ED HPI GENERAL MEDICAL PROBLEM - General Chief Complaint: Neuro Symptoms/Deficits Stated Complaint: NUMBNESS Time Seen by Provider: 04/05/17 08:48 - History of Present Illness INITIAL COMMENTS - FREE TEXT/NARRATIVE: This is a 46-year-old woman presenting with paresthesias, weakness, pain. On March 28 she developed tingling in her hands and her lower limbs distal to her knees. Symptoms have progressed since that time becoming more painful. She now has widespread pain in her arm, legs, back, chest. She has sharp pain that shoots up her arms. The pain in her back started as a band across her lower back that extended down to her hips. This morning she woke up and her feet were completely numb. She got up to go the bathroom and her ankle twisted and she fell. She then urinated on the floor. She notes that she's had several episodes of urinary incontinence, which she attributes to inability to get to the bathroom. 2 days ago she developed right facial droop. She presented to the emergency department and to her PCPs office over the last week. She started Lyrica, which was associated with no benefit. She denies any recent illness in the last 2-4 weeks. No diarrhea, fevers, upper respiratory symptoms. No neck pain She has a long-standing history of joint pain, particularly her knees and set multiple surgeries of the left knee. She had been on gabapentin chronically for chronic pain Generalized Pain Score (Numeric/FACES): 10 - Related Data Allergies Allergy/AdvReac Type Severity Reaction Status Date / Time morphine Allergy Itching Verified 04/05/17 09:02 Home Meds: Home Meds Gabapentin [Neurontin] 600 mg PO TID 03/29/17 [History] Amitriptyline [Elavil] 25 mg PO BEDTIME PRN 04/03/17 [History] Prednisone [IJD: predniSONE] 20 mg PO DAILY 04/03/17 [History] Naproxen Sodium [Aleve] 220 mg PO DAILY PRN 04/05/17 [History] Pregabalin [Lyrica] 75 mg PO BID 04/05/17 [History] Past Medical History HEENT History: Reports: Other (See Below) Other HEENT History: frequent headaches Cardiovascular History: Reports: None Respiratory History: Reports: None Gastrointestinal History: Reports: None Genitourinary History: Reports: None 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) Other OB/BYN History: mass removed form RLQ of abd Neurological History: Reports: Headaches, Chronic Psychiatric History: Reports: None Endocrine/Metabolic History: Reports: None Hematologic History: Reports: None Immunologic History: Reports: None Oncologic (Cancer) History: Reports: None Dermatologic History: Reports: None - Infectious Disease History Infectious Disease History: Reports: Chicken Pox - Past Surgical History Head Surgeries/Procedures: Reports: None Female Surgical History: Reports: Tubal Ligation Musculoskeletal Surgical History: Reports: Other (See Below) Other Musculoskeletal Surgeries/Procedures:: numbness, parasthesias of the bilat upper and lower extremities, clumsiness and falls Social & Family History - Family History Family Medical History: Noncontributory - Tobacco Use Smoking Status *Q: Never Smoker Second Hand Smoke Exposure: No - Caffeine Use Caffeine Use: Reports: Soda - Alcohol Use Days Per Week of Alcohol Use: 0 - Recreational Drug Use Recreational Drug Use: No ED ROS GENERAL - Review of Systems Review Of Systems: ROS reveals no pertinent complaints other than HPI. ED EXAM, NEURO - Physical Exam Exam: See Below Comments: Constitutional: No acute distress Psychiatric: Mood/Affect: normal/appropriate Neurological: Mental Status: General: Normal activity, good hygiene, appropriate appearance. Level of consciousness: Awake, alert. Orientation: Oriented to person, place, time and situation. Concentration/Attention Span: Normal. Comprehension/Praxis: Able to perform a three step command. Fund of Knowledge/memory: Adequate recent and remote recall. Language: Fluent and articulate without evidence of aphasia or dysarthria. Thought Content: Normal. Insight/Judgement: Normal. Cranial Nerves: Pupils equally round and reactive to light. Visual [place] full to confrontation. Gaze conjugate, EOMI except end-gaze nystagmus. Sensation intact and symmetric to light touch. Facial strength is full and symmetric. Palate elevates symmetrically. Normal shrug bilaterally. Tongue protrudes midline Motor: Normal tone in all groups. No drift. Power using MRC scale and R/L notation as follows (limited by pain): Deltoid 4/4, biceps 4+/4+, triceps 4/4, wrist extensors 4/4, wrist flexors 4/4, finger extensors 4-/4-, finger flexors 4 /4, FDI 3/3, hip flexors 4/4, hip abductors 4/4, knee extensors 4+/4+, knee flexors 4/4, ankle dorsiflexors 4-/4-, ankle plantar flexors 5/5 Sensation: Sensation is absent to cold distal to knees and elbows, intact chest and abdomen. Vibratory sense mildly reduced at great toes. Deep tendon reflexes: Absent throughout. Plantar responses are mute Coordination: Finger to nose, heel to ramirez are limited by pain and weakness Gait: Not tested HEENT: Eyes: non icteric, Mouth: moist mucus membranes Cardiovascular: RRR, no obvious murmur Respiratory: clear lungs GI: tender Musculoskeletal: diffusely tender Skin: no visible rash Course - Vital Signs Last Recorded V/S: Last Vital Signs Temp 36.1 C 04/05/17 10:18 Pulse 106 H 04/05/17 10:18 Resp 18 04/05/17 10:18 BP 140/94 H 04/05/17 10:18 Pulse Ox 98 04/05/17 10:18 - Orders/Labs/Meds Orders: Active Orders 24 hr Category Date Time Status Cardiac Monitoring [RC] . DIRECTED Care 04/05/17 09:14 Active EKG Documentation Completion [RC] STAT Care 04/05/17 09:14 Active Notify Provider Consults [RC] ASDIRECTED Care 04/05/17 09:15 Active Oxygen Therapy, ED [RC] ASDIRECTED Care 04/05/17 09:14 Active Pulse Oximetry [RC] ASDIRECTED Care 04/05/17 09:14 Active Consult to Physician [CONS] Stat Cons 04/05/17 09:15 Active Sodium Chloride 0.9% [Saline Flush] Med 04/05/17 09:15 Active 10 ml FLUSH ASDIRECTED PRN Sodium Chloride 0.9% [Saline Flush] Med 04/05/17 09:15 Active 2.5 ml FLUSH ASDIRECTED PRN Saline Lock Insert [OM.PC] Stat Oth 04/05/17 09:14 Ordered Medication Orders Sodium Chloride (Saline Flush) 10 ml FLUSH ASDIRECTED PRN PRN Reason: Keep Vein Open Sodium Chloride (Saline Flush) 2.5 ml FLUSH ASDIRECTED PRN PRN Reason: Keep Vein Open Labs: Laboratory Tests 04/05/17 04/05/17 04/05/17 Range/Units 09:25 09:25 09:25 WBC 8.21 (4.0-11.0) K/uL RBC 5.11 (4.30-5.90) M/uL Hgb 13.8 (12.0-16.0) g/dL Hct 42.6 (36.0-46.0) % MCV 83.4 (80.0-98.0) fL MCH 27.0 (27.0-32.0) pg MCHC 32.4 (31.0-37.0) g/dL RDW Std Deviation 62.5 H (28.0-62.0) fl RDW Coeff of Junaid 21 H (11.0-15.0) % Plt Count 418 H (150-400) K/uL MPV 9.20 (7.40-12.00) fL Neut % (Auto) 70.4 (48.0-80.0) % Lymph % (Auto) 19.9 (16.0-40.0) % [place] % (Auto) 8.6 (0.0-15.0) % Eos % (Auto) 0.5 (0.0-7.0) % Baso % (Auto) 0.6 (0.0-1.5) % Neut # (Auto) 5.8 H (1.4-5.7) K/uL Lymph # (Auto) 1.6 (0.6-2.4) K/uL [place] # (Auto) 0.7 (0.0-0.8) K/uL Eos # (Auto) 0.0 (0.0-0.7) K/uL Baso # (Auto) 0.1 (0.0-0.1) K/uL Nucleated RBC % 0.0 /100WBC Nucleated RBCs # 0 K/uL INR 0.97 (0.86-1.11) Sodium 137 (136-146) mmol/L Potassium 4.0 (3.5-5.1) mmol/L Chloride 100 (98-110) mmol/L Carbon Dioxide 26 (21-31) mmol/L BUN 18 (6.0-23.0) mg/dL Creatinine 0.8 (0.6-1.5) mg/dL Est Cr Clr Drug Dosing TNP Estimated GFR (MDRD) > 60.0 ml/min Glucose 89 (60-110) mg/dL Calcium 10.3 (8.8-10.8) mg/dL Total Bilirubin 0.6 (0.1-1.5) mg/dL AST 22 (5-40) IU/L ALT 33 (8-54) IU/L Alkaline Phosphatase 80 (40-150) Total Protein 8.4 H (6.0-8.0) g/dL Albumin 4.4 (3.5-5.0) g/dL Globulin 4.0 H (2.0-3.5) g/dL Albumin/Globulin Ratio 1.1 L (1.3-2.8) Meds: Medications Generic Name Dose Route Start Last Admin Trade Name Freq PRN Reason Stop Dose Admin Sodium Chloride 10 ml 04/05/17 09:15 Saline Flush FLUSH ASDIRECTED PRN Keep Vein Open Sodium Chloride 2.5 ml 04/05/17 09:15 Saline Flush FLUSH ASDIRECTED PRN Keep Vein Open Discontinued Medications Generic Name Dose Route Start Last Admin Trade Name Freq PRN Reason Stop Dose Admin Hydromorphone HCl 1 mg 04/05/17 09:59 04/05/17 10:15 Dilaudid IVPUSH 04/05/17 10:00 1 mg ONETIME ONE Administration Sodium Chloride 1,000 mls @ 999 mls/hr 04/05/17 09:15 04/05/17 09:58 Normal Saline IV 04/05/17 10:15 999 mls/hr STAT ONE Administration Ketorolac Tromethamine 30 mg 04/05/17 09:15 04/05/17 09:54 Toradol IVPUSH 04/05/17 09:16 30 mg ONETIME ONE Administration Departure - Departure Time of Disposition: 09:15 Disposition: DC/Tfer to Acute Hospital 02 Condition: Fair Clinical Impression: Paresthesias, Guillain Spring syndrome Extremity pain Qualifiers: Extremity pain location: unspecified extremity Qualified Code(s): M79.609 - Pain in unspecified limb - Discharge Information Referrals: PCP,None [Primary Care Provider] - Forms: ED Department Discharge - Problem List & Annotations (1) Guillain Spring syndrome SNOMED Code(s): 21780708, 311971772 Code(s): G61.0 - GUILLAIN-BARRE SYNDROME Status: Acute Current Visit: Yes - Problem List Review Problem List Initiated/Reviewed/Updated: Yes - Assessment/Plan Assessment:: This is a 46-year-old woman with 8 day history of progressive paresthesias, distal numbness, weakness. Examination notable for proximal and distal weakness , distal sensory deficits and absent reflexes. 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 I recommend lumbar puncture, EMG and treatment with IVIG 2g/kg over 5 days. LP should be completed prior to IVIG to avoid confounding results. LP to rule out pleocytosis / sign of infection e.g. West Nile, but pt afebrile rendering this less likely.. There will be no neurology coverage for the next 3 days, so I recommend transfer.
== END 2017-04-05 10:54 ==
LOC: MW.ED 08:45
DX: G61.0 Guillain-Barre syndrome (principal); M79.609 Pain in unspecified limb; Z88.5 Allergy status to narcotic agent; Z79.899 Other long term (current) drug therapy
CPT/HCPCS: 36415; 80053; 85025; 85610; 93005; 96361; 96374; 96375; 99285; J1170; J1885; J7040; 99284

== ENCOUNTER 2017-05-13 23:02 | Emergency (ER) | payer OTHER ==
--- NOTE | 2017-05-13 23:40 | EDM.PDOC ---
ED HPI GENERAL MEDICAL PROBLEM - General Chief Complaint: General Stated Complaint: PT BLACK OUT Time Seen by Provider: 05/13/17 23:34 - History of Present Illness INITIAL COMMENTS - FREE TEXT/NARRATIVE: HISTORY AND PHYSICAL: History of present illness: Patient 47-year-old white female presents with a concern of syncope times multiple last several days she also complained of diarrhea she states she's had blood in her stool she denies chest pain or shortness of breath she has a history of Guillain-Spring there's been no fever chills palpitations she denies any known cardiac disease she denies any new neuro neurological signs or symptoms Review of systems: As per history of present illness and below otherwise all systems reviewed and negative. Past medical history: As per history of present illness and as reviewed below otherwise noncontributory. Surgical history: As per history of present illness and as reviewed below otherwise noncontributory. Social history: No reported history of drug or alcohol abuse. Family history: As per history of present illness and as reviewed below otherwise noncontributory. Physical exam: HEENT: Atraumatic, normocephalic, pupils reactive, negative for conjunctival pallor or scleral icterus, mucous membranes moist, throat clear, neck supple, nontender, trachea midline. Lungs: Clear to auscultation, breath sounds equal bilaterally, chest nontender. Heart: S1S2, regular, negative for clicks, rubs, or JVD. Abdomen: Soft, nondistended, nontender. Negative for masses or hepatosplenomegaly. Negative for costovertebral tenderness. Pelvis: Stable nontender. Genitourinary: Deferred. Rectal: Deferred. Extremities: Atraumatic, negative for cords or calf pain. Neurovascular unremarkable. Neuro: Awake, alert, oriented. Cranial nerves II through XII unremarkable. Cerebellum unremarkable. Motor and sensory unremarkable throughout. Exam nonfocal. Diagnostics: CBC CMP troponin PT/INR chest x-ray EKG CT brain CT abdomen and pelvis urine drug screen Therapeutics: 71 L bolus Impression: #1 history of syncope #2 diarrhea #3 history of blood per rectum #4 history of Guillain-Spring Definitive disposition and diagnosis as appropriate pending reevaluation and review of above. 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) Other OB/BYN History: mass removed form RLQ of abd Musculoskeletal History: Reports: None Neurological History: Reports: Headaches, Chronic Psychiatric History: Reports: None Endocrine/Metabolic History: Reports: None Hematologic History: Reports: None Immunologic History: Reports: None Oncologic (Cancer) History: Reports: None Dermatologic History: Reports: None - Infectious Disease History Infectious Disease History: Reports: None - Past Surgical History Head Surgeries/Procedures: Reports: None HEENT Surgical History: Reports: None Cardiovascular Surgical History: Reports: None Female Surgical History: Reports: Hysterectomy, Tubal Ligation Endocrine Surgical History: Reports: None Musculoskeletal Surgical History: Reports: Other (See Below) Other Musculoskeletal Surgeries/Procedures:: numbness, parasthesias of the bilat upper and lower extremities, clumsiness and falls Social & Family History - Family History Family Medical History: Noncontributory - Tobacco Use Smoking Status *Q: Never Smoker Second Hand Smoke Exposure: No - Caffeine Use Caffeine Use: Reports: Soda - Alcohol Use Days Per Week of Alcohol Use: 0 - Recreational Drug Use Recreational Drug Use: No ED ROS GENERAL - Review of Systems Review Of Systems: ROS reveals no pertinent complaints other than HPI. ED EXAM, GENERAL - Physical Exam Exam: See Below (The dictation) Course - Vital Signs Text/Narrative:: I discussed diagnostics with patient and significant other admission offered for observation was my recommendation patient declined states she does feel better follow-up with her private medical doctor return as needed as discussed Last Recorded V/S: Last Vital Signs Temp 35.8 C 05/13/17 23:26 Pulse 110 H 05/13/17 23:26 Resp 17 05/13/17 23:26 BP 118/84 05/13/17 23:26 Pulse Ox 97 05/13/17 23:26 - Orders/Labs/Meds Orders: Active Orders 24 hr Category Date Time Status EKG Documentation Completion [RC] STAT Care 05/13/17 23:39 Active Abdomen Pelvis wo Cont [CT] Stat Exams 05/13/17 23:39 Taken CDIFF TOX A+B [OP] Stat Lab 05/13/17 23:40 Uncollected CULTURE STOOL + CAMPY+SHIGATOX [RM] Stat Lab 05/13/17 23:40 Uncollected DRUG SCREEN, URINE [URCHEM] Stat Lab 05/14/17 01:11 Ordered Sodium Chloride 0.9% [Normal Saline] 1,000 ml Med 05/13/17 23:45 Active IV ASDIRECTED Medication Orders Sodium Chloride (Normal Saline) 1,000 mls @ 999 mls/hr IV ASDIRECTED FELA Last Admin: 05/13/17 23:52 Dose: 999 mls/hr Labs: Laboratory Tests 05/13/17 05/13/17 05/13/17 Range/Units 23:50 23:50 23:50 WBC 7.03 (4.0-11.0) K/uL RBC 4.71 (4.30-5.90) M/uL Hgb 12.9 (12.0-16.0) g/dL Hct 41.5 (36.0-46.0) % MCV 88.1 (80.0-98.0) fL MCH 27.4 (27.0-32.0) pg MCHC 31.1 (31.0-37.0) g/dL RDW Std Deviation 50.5 (28.0-62.0) fl RDW Coeff of Junaid 16 H (11.0-15.0) % Plt Count 328 (150-400) K/uL MPV 9.80 (7.40-12.00) fL Neut % (Auto) 67.0 (48.0-80.0) % Lymph % (Auto) 24.0 (16.0-40.0) % [place] % (Auto) 7.7 (0.0-15.0) % Eos % (Auto) 1.0 (0.0-7.0) % Baso % (Auto) 0.3 (0.0-1.5) % Neut # (Auto) 4.7 (1.4-5.7) K/uL Lymph # (Auto) 1.7 (0.6-2.4) K/uL [place] # (Auto) 0.5 (0.0-0.8) K/uL Eos # (Auto) 0.1 (0.0-0.7) K/uL Baso # (Auto) 0.0 (0.0-0.1) K/uL Nucleated RBC % 0.0 /100WBC Nucleated RBCs # 0 K/uL INR 0.97 (0.86-1.11) Sodium 142 (136-146) mmol/L Potassium 3.3 L (3.5-5.1) mmol/L Chloride 108 (98-110) mmol/L Carbon Dioxide 24 (21-31) mmol/L BUN 12 (6.0-23.0) mg/dL Creatinine 0.8 (0.6-1.5) mg/dL Est Cr Clr Drug Dosing 90.85 mL/min Estimated GFR (MDRD) > 60.0 ml/min Glucose 96 (60-110) mg/dL Calcium 9.7 (8.8-10.8) mg/dL Total Bilirubin 0.4 (0.1-1.5) mg/dL AST 23 (5-40) IU/L ALT 26 (8-54) IU/L Alkaline Phosphatase 68 (40-150) Troponin I < 0.10 (0.0-0.29) NG/ML Total Protein 7.6 (6.0-8.0) g/dL Albumin 3.9 (3.5-5.0) g/dL Globulin 3.7 H (2.0-3.5) g/dL Albumin/Globulin Ratio 1.1 L (1.3-2.8) Meds: Medications Generic Name Dose Route Start Last Admin Trade Name Freq PRN Reason Stop Dose Admin Sodium Chloride 1,000 mls @ 999 mls/hr 05/13/17 23:45 05/13/17 23:52 Normal Saline IV 999 mls/hr ASDIRECTED FELA Administration Departure - Departure Time of Disposition: 01:12 Disposition: Home, Self-Care 01 Condition: Good Clinical Impression: Syncope, Diarrhea, History of Guillain-Warrens syndrome - Discharge Information Referrals: PCP,None [Primary Care Provider] - Forms: ED Department Discharge Additional Instructions: The following information is given to patients seen in the emergency department who are being discharged to home. This information is to outline your options for follow-up care. We provide all patients seen in our emergency department with a follow-up referral. The need for follow-up, as well as the timing and circumstances, are variable depending upon the specifics of your emergency department visit. If you don't have a primary care physician on staff, we will provide you with a referral. We always advise you to contact your personal physician following an emergency department visit to inform them of the circumstance of the visit and for follow-up with them and/or the need for any referrals to a consulting specialist. The emergency department will also refer you to a specialist when appropriate. This referral assures that you have the opportunity for followup care with a specialist. All of these measure are taken in an effort to provide you with optimal care, which includes your followup. Under all circumstances we always encourage you to contact your private physician who remains a resource for coordinating your care. When calling for followup care, please make the office aware that this follow-up is from your recent emergency room visit. If for any reason you are refused follow-up, please contact the [facility] emergency department at and asked to speak to the emergency department charge nurse. [facility] - General Surgery Professional Building [address] [place] [address], [address] [place] [address] Push fluids follow-up primary medical doctor call to schedule routine appointment with general surgery return as needed as discussed - My Orders Last 24 Hours: My Active Orders 05/13/17 23:39 EKG Documentation Completion [RC] STAT Abdomen Pelvis wo Cont [CT] Stat 05/13/17 23:40 CDIFF TOX A+B [OP] Stat CULTURE STOOL + CAMPY+SHIGATOX [RM] Stat 05/13/17 23:45 Sodium Chloride 0.9% [Normal Saline] 1,000 ml IV ASDIRECTED 05/14/17 01:11 DRUG SCREEN, URINE [URCHEM] Stat - Assessment/Plan Last 24 Hours: My Active Orders 05/13/17 23:39 EKG Documentation Completion [RC] STAT Abdomen Pelvis wo Cont [CT] Stat 05/13/17 23:40 CDIFF TOX A+B [OP] Stat CULTURE STOOL + CAMPY+SHIGATOX [RM] Stat 05/13/17 23:45 Sodium Chloride 0.9% [Normal Saline] 1,000 ml IV ASDIRECTED 05/14/17 01:11 DRUG SCREEN, URINE [URCHEM] Stat
[2017-05-13] MEDS ORDERED: Sodium Chloride 0.9% 1,000 ML IV SCH (23:45)
[2017-05-14 00:36] LABS: CHLORIDE,CL 108 mmol/L (98-110); SODIUM,NA 142 mmol/L (136-146)
[2017-05-14 01:28] VITALS: BP 125/90
--- NOTE | 2017-05-14 18:24 | CT ---
EXAM DATE: 05/13/17 PATIENT'S AGE: 47 Patient: ROSAURA GONZALEZ Facility: [place], [place] Site . Site : [id number] Study: CT Abdomen/Pelvis [id number] 12:51:28 AM Ordering Physician: Aneta Ken Final Report: INDICATION: Bloody stools x 1 day. H/o hysterectomy [address] ABDOMEN AND PELVIS WITHOUT CONTRAST TECHNIQUE: Multidetector CT imaging was performed through the abdomen and pelvis without intravenous contrast administration. Coronal and sagittal reconstructions were generated. COMPARISON: 04/06/2017 CT abdomen and pelvis. FINDINGS: Lower chest: Lung bases are clear. Liver: Unchanged 1.7 centimeter hypodensity in the dome of the right hepatic lobe on image 15 of series 201, with enhancement characteristics on the prior study suggesting hemangioma. Gallbladder and bile ducts: Partially contracted gallbladder. No biliary dilation identified. Pancreas: Unremarkable. Spleen: Normal. Adrenals: No nodules or masses. Kidneys, ureters, and urinary bladder: No urinary tract stones identified. No renal masses or hydronephrosis. Incompletely distended urinary bladder with resultant wall prominence. No bladder mass or definite wall thickening. Gastrointestinal tract: Normal caliber bowel without definite wall thickening. Appendix not identified. Vascular structures: Normal for age. Peritoneum: Minimal postoperative stranding in the low pelvis. No evidence of abscess. No free air identified. Abdominal wall: Postoperative changes in the lower anterior abdominal wall in the midline. Lymph nodes: No pathologically enlarged nodes identified. Reproductive organs: Interval hysterectomy. Previously seen complex left adnexal mass no longer identified, and neither ovary is seen, apparently having also been resected. Bones: Mild spinal degenerative changes. IMPRESSION: 1. No acute abnormality identified. No cause for the patient`s symptoms is evident. 2. Interval hysterectomy and apparent resection of the ovaries and previously seen complex left adnexal mass. GOYO PHAM MD [employer] Dictated by Tristen Pham MD @ 05/14/2017 1:10:34 AM Dictated by: Tristen Pham MD @ 05/14/2017 01:11:23 (Electronic Signature) Report Signed by Proxy. [facility]
== END 2017-05-14 01:27 | disposition home or self-care (01) ==
LOC: MW.ED 23:02
DX: R55 Syncope and collapse (principal); R19.7 Diarrhea, unspecified; Z88.5 Allergy status to narcotic agent; Z79.899 Other long term (current) drug therapy; Z86.69 Personal history of other diseases of the nervous system and sense organs
CPT/HCPCS: 74176; 80053; 80305; 84484; 85025; 85610; 93005; 96360; 99285; J7040; 99284